=== PATIENT | male | born 1960 | race Caucasian/White ===

== ENCOUNTER 2017-08-23 14:06 | Inpatient (IN) | payer OTHER ==
[~2017-08-23] VITALS: Ht 182.9 cm; Wt 119.7 kg
[~2017-08-23 14:06] MED LIST: AMLODIPINE BESY10 MG PO; ATENOLOL 100MG100 M2; CLONAZEPAM 1 MG1 M1; GABAPENTIN 100100 MG PO; GLUCOPHAGE500 MG; HYDROCHLOROTHIA25 M1; LANTUS SUBQ; LISINOPRIL40 MG PO; MS CONTIN15 MG; NORCO 10-325 T1 EACH; NOVOLOG100 UNIT/1; NOVOLOG100 UNIT/1 SUBQ; PAROXETINE HCL30 MG; PRAZOSIN HCL5 MG; PROAIR HFA8.5 GM INH; VIAGRA50 MG; ZPAK PO
[2017-08-23] MEDS ORDERED: AUGMENTIN 875-1 EACH PO (14:55)
[2017-08-23] MEDS ORDERED: ASPIR 8181 MG PO (14:56)
[2017-08-23] MEDS ORDERED: ATORVASTATIN CA40 MG PO (14:57)
[2017-08-23] MEDS ORDERED: WELLBUTRIN XL150 MG PO (14:58)
[2017-08-23] MEDS ORDERED: D-20002000 UNIT PO (15:01)
[2017-08-23] MEDS ORDERED: DOXYCYCLINE 10100 MG PO (15:02)
[2017-08-23] MEDS ORDERED: COLACE100 MG PO ×2 (15:02→15:31)
[2017-08-23] MEDS ORDERED: PROZAC20 MG PO (15:03)
[2017-08-23] MEDS ORDERED: ROBAXIN 750 MG750 M1 PO (15:05)
[2017-08-23] MEDS ORDERED: POTASSIUM20 PO (15:05)
[2017-08-23] MEDS ORDERED: PRED FORTE 1% EY5 M1 OPHTHALMIC (15:10)
[2017-08-23] MEDS ORDERED: SENNA8.6 MG PO ×2 (15:10→15:32)
[2017-08-23] MEDS ORDERED: FLOMAX0.4 MG PO (15:11)
[2017-08-23] MEDS ORDERED: TRAZODONE HCL100 MG PO (15:12)
[2017-08-23] MEDS ORDERED: CARVEDILOL25 MG PO (15:17)
[2017-08-23] MEDS ORDERED: HYDRALAZINE 2525 MG PO (15:19)
[2017-08-23] MEDS ORDERED: OXYCODONE HCL 55 MG PO (15:23)
[2017-08-23] MEDS ORDERED: VALACYCLOVIR1000 MG PO (15:24)
[2017-08-23] MEDS ORDERED: AMBIEN 5 MG TABL5 M1 PO (15:26)
[2017-08-23 18:00] VITALS: BP 136/89
[2017-08-23 20:30] VITALS: BP 139/67
--- NOTE | 2017-08-24 02:20 | NUR ---
ASSUMED CARE AT 1930. [facility]. MOVES WELL IN BED AND REFUSES ASSIST WITH TURNING. TAKES PILLS WHOLE WITH WATER. PAIN MEDS PER MAR. WATCHED TV SHOWS ON TABLET UNTIL NEARLY MIDNIGHT. JOSÉ WRAP TO RT BKA C/D/I. STANLEY OBSERVED NEARLY ON STOMACH PER SELF. STATES THAT HE DOES NOT TAKE VALACYCLOVIR, AND HAS NOT TAKEN IT FOR TWO YEARS, PER HIS PRIVATE PHYSICIAN. MEDICATIONS REVIEWED BY HIMS IN ADDITION TO REVIEWING THEM WITH DR. ESPARZA. HAS REMAINED IN BED THUS FAR THIS SHIFT. VOIDS PER URINAL, NURSE EMPTIES. WEARS CPAP FROM HOME, R.T. NOTIFIED. HOURLY ROUNDS CONTINUE, BED ALARM ON. REFUSES TO HAVE 4 SR UP, HAS THREE. CALL LITE IN REACH.
[2017-08-24 04:20] LABS: HEMATOCRIT 28.8 % (42.0-52.0); HEMOGLOBIN 9.7 gm/dL (14.0-18.0); MCH 27.6 pg (26.0-34.0); MCHC 33.7 g/dL (28.0-37.0); MCV 82.1 fL (80.0-100.0); MPV 9.3 fl. (7.2-11.1); RBC 3.51 mil/uL (4.50-6.00); RDW-CV 14.4 % (10.5-14.5); WBC 9.3 thou/uL (4.0-11.0)
[2017-08-24 04:35] LABS: CALCIUM 8.3 mg/dL (8.5-10.1); CREATININE 0.8 mg/dL (0.6-1.3); POTASSIUM 3.5 mmol/L (3.5-5.1)
--- NOTE | 2017-08-24 05:54 | NUR ---
HAS BEEN OBSERVED SLEEPING SINCE AROUND MIDNIGHT. HAS NOT REQUESTED MORE PAIN MEDS AFTER LAST DOSE AT 2252. SEE AUG. TURNS SELF EASILY IN BED, AND HAS BEEN OBSERVED IN NEARLY PRONE POSIITON. VOIDS PER URINAL, NURSING EMPTIES. HOURLY ROUNDS CONTINUE, BED ALARM ON. CALL LITE IN REACH.
[2017-08-24 06:26] VITALS: BP 157/68
[2017-08-24 08:00] VITALS: BP 127/69
[2017-08-24 17:00] VITALS: BP 122/72
--- NOTE | 2017-08-24 18:23 | NUR ---
ASSUMMED CARE OF PT AT 0730, PT ALERT AND ORIENTED, FLAT AFFECT, PT COOPERATIVE, PT TRANSFERS WITH SBA, GB WITH A STAND PIVOT, PT IS COOPERATIVE TO CARES AND WORKS WITH THERAPIES BUT WHEN THERAPY WAS OVER DOES REQUESTS TO LAY IN BED, PUTS CPAP ON AND SLEEPS UNTIL NEXT CARE IS NEEDED AND STAFF WAKE HIM UP, HE DID STAY IN THE CHAIR THIS AFTERNOON FOR SHORT PERIOD AFTER PT WAS COMPLETED BUT AGAIN SLEPT MOST OF AFTERNOON, PT COMPLAINS OF PAIN, MEDICATED PER ORDER, PT SPIRITS BRIGHTER THIS PM, PLAYING VIDEO GAME, MAKING JOKES. SMALL RED AREAS NOTED IN PTS GROIN AREA, BUTTOCKS, THIGHS, LEGS AND A FEW ON CHEST, ABDOMEN AND BACK, PT STATES THEY ARE BUG BITES, HE STATES HE HAS HAD BED BUGS AT HOME, WHEN ASKED ABOUT THE POSSIBILITY OF FLEAS HE SAID IT COULD ALSO BE FLEA BITES, PT STATES THEY ITCH SOME BUT IT IS TOLERABLE , BENADRYL GIVEN PER ORDER X 1, PT HAD LOW GRADE FEVER TODAY, PT TAKING FOOD AND FLUIDS WELL, DRESSING C/D/I TO RIGHT STUMP,PT STATES HIS RIGHT LOWER LEG HAS A SENSATION OF FEELING COLD, STUMP WRAPPED IN WARM BLANKET, PT PARTICIPATED IN ALL THERAPIES, HOURLY ROUNDING COMPLETED, ASSESSMENT COMPLETE WILL CONTINUE TO MONITER.
[2017-08-24 20:00] VITALS: BP 136/67
[2017-08-25 00:15] VITALS: BP 133/68
[2017-08-25 01:30] LABS: URINE BILIRUBIN NEGATIVE (Negative); URINE BLOOD NEGATIVE (Negative); URINE CLARITY CLEAR; URINE COLOR YELLOW; URINE GLUCOSE-RANDOM TRACE (Negative); URINE KETONES NEGATIVE (Negative); URINE LEUKOCYTES-REFLEX NEGATIVE (Negative); URINE NITRITE-REFLEX NEGATIVE (Negative); URINE PROTEIN TRACE (Negative)
[2017-08-25 04:36] LABS: ABSOLUTE EOSINOPHILS 0.5 thou/uL (0.0-0.7); ABSOLUTE LYMPHOCYTES 2.4 thou/uL (0.8-5.3); ABSOLUTE MONOCYTES 0.9 thou/uL (0.0-1.2); ABSOLUTE NEUTROPHILS 5.1 thou/uL (1.6-8.1); BASOPHILS 0.3 %; EOSINOPHILS 5.4 %; HEMATOCRIT 29.4 % (42.0-52.0); HEMOGLOBIN 9.8 gm/dL (14.0-18.0); LYMPHOCYTES 26.8 %; MCH 27.5 pg (26.0-34.0); MCHC 33.2 g/dL (28.0-37.0); MCV 82.7 fL (80.0-100.0); MONOCYTES 9.9 %; NUCLEATED RBCS 0 /100WBC; PLATELET COUNT* 235 thou/uL (150-400); POLYS 57.6 %; RBC 3.56 mil/uL (4.50-6.00); RDW-CV 14.5 % (10.5-14.5); WBC 8.9 thou/uL (4.0-11.0)
--- NOTE | 2017-08-25 05:29 | NUR ---
ASSUMED CARE AT 1930. PATIENT S/P RT BKA. RESTING IN BED AT BEGINNING OF SHIFT. TURNS SELF EASILY IN BED. TAKES PILLS WHOLE WITH DIET SODA ALL AT ONE TIME. STILL NO BM, REFUSED SUPPOSITORY. TOOK MIRILAX AND COLACE PER SCHEDULE. SEE AUG. MEDICATED FOR PAIN AT HS, SEE AUG. HAS SLEPT MUCH OF THE NIGHT. OBTAINED U/A AT 1220. TEMP WAS 100.2 AT 2000, DECLINED APAP. TEMP WAS 100.1 AT MIDNIGHT, TOOK APAP. HAS BEEN SLEEPING SINCE. MULTIPLE URINALS IN PLACE. STATES THAT HE LIVES IN A TRAILER WITH 5 STEPS AND HE IS GETTING A RAMP [facility] BY THE [facility] "BEFORE I AM DISCHARGED." PATIENT STATES THAT HE HAS BEEN TOLD HE WILL BE HERE ABOUT TWO WEEKS, AND THIS NURSE ENCOUARGED PATIENT TO KEEP CHECKING WITH THE VA TO ASSESS PROGRESS OF RAMP COMPLETION. REMAINS ON ISOLATION FOR UNKNOWN BUG BITES. TOOK BENADRYL AT HS, BUT STATES THE ITCHING IS MUCH BETTER. GROINS AND SCATTERED AREAS ON HIS BODY HAVE RED AREAS. NO BUGS SEEN DURING CARES. HOURLY ROUNDS CONTINUE. BED ALARM ON. CALL LITE IN REACH.
[2017-08-25 06:45] VITALS: BP 145/68
--- NOTE | 2017-08-25 06:58 | NUR ---
PATIENT STATES THAT HE NOT ITCHING AT THIS TIME. PATIENT HAS MOVED ABOUT IN HIS BED, AND NO BLOOD STREAK VISIBLE ON SHEETS OBSERVED WHILE GIVING MORNING MEDS. TEMP 98.7 ORALLY. HAS BEEN WEARING CPAP WITH NASAL MASK THROUGH NIGHT. HOURLY ROUNDS CONTINUE.
[2017-08-25 08:00] VITALS: BP 170/74
[2017-08-25 12:00] VITALS: BP 148/66
--- NOTE | 2017-08-25 16:37 | NUR ---
ASSUMMED CARE OF PT AT 0730, PT ALERT AND ORIENTED, PT TRANSFERS WITH SBA, GB AND WALKER, IF NURSE TOUCHES PT ON GB PT STATES PLEASE DO NOT TOUCH ME, DISCUSSED SAFETY CONCERNS BUT PT STATES HE DOES NOT NEED TO HAVE GB HELD, AT ONE POINT PT LOST BALANCE AND STAFF DID NEED TO STEADY PT, PT STATES IT HAS TO DO WITH HIS PTSD, PT HAS FLAT AFFECT, IS PLEASANT AND COOPERATIVE THIS SHIFT, PT STATES HIS STUMP FEELS COLD AND HE CAN FEEL SOME SHARP PHANTOM PAIN, WARM BLANKET APPLIED TO STUMP WITH RELIEF, MEDICATED X 2 FOR PAIN THIS SHIFT, TAKING FOOD AND FLUIDS WELL, PT STATES HE DOES BECOME NAUSEATED AT TIMES BUT HAS HAD NO NAUSEA THIS SHIFT, PT HAD LARGE BM IN TOILET THIS AM, PT AFEBRILE THIS SHIFT, PT REFUSED TO GO TO DININGROOM FOR MEALS, PT UP IN CHAIR MOST OF AM, PT REFUSED BATH, DID DRESS INTO CLEAN GYM SHORTS, PT INCONTINENT OF LARGE AMOUNT OF URINE OR SPILLED URINAL BED SATURATED, PT DOES NOT KNOW WHAT HAPPENED, DRESSING TO RIGHT STUMP C/D/I. HOURLY ROUNDING COMPLETED, ASSESSMENT COMPLETE, WILL CONTINUE TO MONITER.
[2017-08-25 17:00] VITALS: BP 122/69
[2017-08-25 19:45] VITALS: BP 143/79
--- NOTE | 2017-08-25 20:00 | NUR ---
RECEIVED REPORT AND ASSUMED CARE OF PT, ASSESSMENT COMPLETED. PT SITTING UPON SIDE OF BED. RT STUMP ACEWRAP DRY AND INTACT. NOTED RED PURPLISH AREAS, POSS BITED TO LEGS AND TRUNK. C/O RT STUMP SORENESS DUE TO BEING UP AND DANGLING THIS EVENING. WILL CONT TO MONITOR AND ASSIST NEEDED.
--- NOTE | 2017-08-26 05:32 | NUR ---
ASSUMED CARES AT 0200. PT USED URINAL AND STAFF EMPTIED. WEARS CPAP OVERNIGHT. NO COMPLAINTS. CALL LIGHT IN REACH.
[2017-08-26 06:51] VITALS: BP 152/63
[2017-08-26 08:00] VITALS: BP 145/70
--- NOTE | 2017-08-26 11:51 | NUR ---
Nutrition: New admit to [facility] unit s/p Rt BKA. No albumin recorded. BG 200s. Pt eating 75-100% of CHO controlled meals. +BM today. Wears CPAP at [facility]. Wt stable, 276#. RX: aspirin, insulin. GOALS: better BG control with insulin. Recommend MVI for wound healing. Mild risk. Will follow weekly.
--- NOTE | 2017-08-26 16:25 | NUR ---
PT CARE ASSUMED THIS AM, ASSESSMENT AND VITAL SIGNS COMPLETED DOCUMENTED. PT HAS BEEN PLEASANT AND COOPERATIVE, WORKED WITH THERAPISTS IN HIS ROOM. PRN PAIN MEDS GIVEN FOR PAIN AT THE SURGICAL SITE, DRESSING TO THE RESIDUAL LIMB REMAINS C/D/I. PT HAS HAD A GOOD APPETITE AND DRINKS MORE THAN ADEQUATE AMOUNTS OF FLUIDS. ISOLATION DC'D THIS AFTERNOON, RAEANN AND DR VALENTIN HAVE DETERMINED THERE IS NO REASON TO CONTINUE IT. FALL PRECAUTIONS AND HOURLY ROUNDING IN PLACE.
[2017-08-26 19:30] VITALS: BP 142/72
--- NOTE | 2017-08-26 21:10 | NUR ---
WHEELED SELF TO DOORWAY OF THE BATHROOM THEN USED WALKER, GAITBELT AND HOPPED THE RESTED OF THE WAY TO THE TOILET. HAD A LOOSE BM. DID OWN HYGIENE AND CLOTHING ADJUSTMENTS. DENIES NEED FOR PAIN MEDS. JOSÉ WRAP TO RIGHT STUMP DRY/INTACT. TRANSFERRED SELF FROM W/C TO BED. TOOK MEDS WHOLE ALL AT ONCE WITH WATER. SNACK PROVIDED.
--- NOTE | 2017-08-27 05:13 | NUR ---
USED URINAL SEVERAL TIMES DURING THE NIGHT. AT ABOUT 0330 SPILLED URINAL IN THE BED RESULTING IN A TOTAL BED CHANGE. URINE SPILLED ONTO PT'S SHIRT AND SHORTS. ASSISTED PT IN WASHING UP WITH A SOAPY WASH CLOTH. PT WASHED HIS DANITA AREA. PAIN MEDS GIVEN AT 0335 FOR C/O RIGHT LEG PAIN WITH RELIEF. HOURLY ROUNDING IN PROGRESS.
[2017-08-27 07:36] VITALS: BP 150/68
--- NOTE | 2017-08-27 16:15 | NUR ---
ASSUMMED CARE OF PT AT 0730, PT ALERT AND ORIENTED, PT STAND PIVOT TRANSFERS WTIH GB WALKER ASSIST OF 1, UP IN CHAIR MUCH OF SHIFT, STUMP DRESSING C/D/I. VOIDS PER URINAL, PT HAD LARGE BM IN TOILET, PT COMPLAINS OF PAIN IN STUMP AND PHANTOM PAIN DOWN LEG, MEDICATED ORDERED FOR PAIN, PT HAS REDDISH ROUND AREAS ON SEVERAL AREAS OF SKIN, PT STATES WHEN IN BED CAN NOT WEAR A SHIRT OR GOWN HE GETS TO FEEL TO CLAUSTROPHOBIC, PT PARTICIPATED IN ALL THERAPIES, HOURLY ROUNDING COMPLETED, ASSESSMENT COMPLETE, WILL CONTINUE TO MONITER.
--- NOTE | 2017-08-27 16:52 | NUR ---
SW met with pt to complete initial assessment, introduce self, and SW role. Pt alert, oriented, conversational. Pt lives at home with his who pt reported to nurse that pt has stage 4 cancer. Pt said that the [facility] was working on getting [facility] crutches and BSC but that pt has not received that yet. Pt has history with Anali when he also had a wound vac. SW to continue to follow to assist with safe dc planning.
--- NOTE | 2017-08-27 20:50 | NUR ---
LAYING IN BED ON HIS SIDE AND WATCHING IPAD. PAIN MED GIVEN FOR C/O RIGHT LEG PAIN RATED "4". JOSÉ WRAP AROUND RIGHT STUMP DRY/INTACT. 4 URINALS AND CALL LIGHT WITHIN REACH. TOOK MEDS WHOLE ALL AT ONCE WITH WATER. SNACK PROVIDED.
[2017-08-27 21:37] VITALS: BP 133/61
--- NOTE | 2017-08-28 06:04 | NUR ---
RESTED QUIETLY WITH CPAP. DENIES NEED FOR PAIN MEDS THIS MORNING. USED URINAL DURING THE NIGHT SEVERAL TIMES. HOURLY ROUNDING IN PROGRESS.
[2017-08-28 07:36] VITALS: BP 149/79
--- NOTE | 2017-08-28 15:45 | NUR ---
Team conference held, SW met with pt, pt , and pt dtr to review team conference summary. Plan for pt to remain on rehab and continue therapies with plan for team to reassess pt length of stay during team conference on Saturday. Possibility for family training with family nearer to dc day once determined. Team also presented possibility that pt live with dtr at dc if needed? Team reported pt independent to SBA with bed mobility and transfers to chair/wc, SBA with walking 10 ft, and SBA with wc mobility 150 ft, max assist with toileting, min assist with toilet transfer, supervision with all other ADLs tasks, min assist with problem solving, min assist to supervision with memory. Team commented pt fatigue, RlE instability and weakness, balance, endurance, safety, and pt having multiple pets at home to be barriers to pt overall progress and safety at home. Pt and pt family in agreement to plan to reteam. Pt asked SW about SSI and SW recommending pt/ contact pt employer, [employer] and possibly [facility]; SW mentioned if there is a physician's statement to be completed, Dr Lechuga could complete and sign if needed or esle pt PCP could complete as well. SW to continue to follow to assist with safe dc planning.
--- NOTE | 2017-08-28 16:55 | NUR ---
ASSUMED CARE AT 0730 PATIENT ALERT/ORIENTED, UP WITH ASSIST OF ONE AND WALKER/GAIT BELT, STAND PIVOT TO W/C FOR NURSING. PARTICIPATED IN ALL THERAPIES TODAY, TO DINING ROOM FOR MEALS, PAIN MEDS GIVEN X2 FOR RIGHT LEG PAIN, HOURLY ROUNDING COMPLETED, BED/CHAIR ALARMS IN PLACE, CALL LIGHT IN REACH
[2017-08-28 20:00] VITALS: BP 142/75
--- NOTE | 2017-08-28 23:21 | NUR ---
ASSUMED PT CARE AT 1930, PT IS A&OX4, PT C/O PAIN THIS SHIFT, PRN PAIN MEDICATIONS GIVEN PER AUG, PT IS ON RA SATTING MID TO HIGH 90'S. PT HAS A RBKA, DRESSING STILL IN PLACE, THIS RN DID NOT REMOVE DRESSING OR VISULAIZE STUMP. BED IN LOW POSITION, CALL LIGHT IN REACH. HOURLY ROUNDING COMPLETED FOR PT SAFETY. PT IS UP WITH ONE AND A WALKER TO THE BR, PT MOVES AROUND IN HIS WHEELCHAIR IN ROOM.
[2017-08-29 07:32] VITALS: BP 147/79
--- NOTE | 2017-08-29 09:22 | NUR ---
SPOKE WITH JESSICA AT [facility]([phone] EXT [phone]) ABOUT WOUND CARE IE: STUMP INDUCTION HEAT TREATER AND STUMP PROTECTOR. DR RAMOS WANTS PATIENT SEEN IN CLINIC ([facility] 2ND FLOOR) ON SaturdayAugust AT 9AM. ROBERT NEAL NOTIFIED ABOUT APPOINTMENT AND SHE WILL SET UP TRANSPORTATION
--- NOTE | 2017-08-29 11:39 | NUR ---
BROCK was informed of pt needing transportation for appt Saturday 09/02 morning to [facility], second floor, at 9 am. BROCK called [facility] at [phone] and arranged for ride, the transport will belt picker pt at 8:00 am. Nurse and pt aware.
--- NOTE | 2017-08-29 16:24 | NUR ---
ASSUMED CARE AT 0730 PATIENT ALERT/ORIENTED, PAIN MEDS GIVEN X2 THIS SHIFT WITH GOOD RELIEF, UP WITH STANDBY ASSIST WITH GAIT BELT, STAND/PIVOT TO W/C FROM BED. PARTICIPATED IN ALL THERAPIES TODAY, REFUSES TO GO TO DINING ROOM DUE TO PTSD, BED/CHAIR ALARMS IN PLACE, CALL LIGHT IN REACH, HOURLY ROUNDING COMPLETED, DRESSING TO RIGHT LEG/STUMP REMAINS INTACT. PATIENT TO F/U WITH SURGEON ON SATURDAY, SEE PREVIOUS NOTE.
[2017-08-29 22:12] VITALS: BP 146/79
--- NOTE | 2017-08-29 22:19 | NUR ---
ASSUMED CARE AT 1929. S/P RT BKA. PATIENT RESTING IN W/C AT BEGINNING OF SHIFT. STAND PIVOT TO BED AT 1930 TO BED WITH GAIT BELT, SBA. VOIDS PER URINAL, FOUR AT BEDSIDE. TAKES PILLS WHOLE WITH WATER. MOVES VERY WELL IN BED, REFUSES ASSIST WITH TURNS. JOSÉ WRAP TO STUMP C/D/I. MEDICATED FOR PAIN AND SLEEP AT HS. CHOCOLATE ICE CREAM FOR HS SNACK. DENIES ITCHING, BUT HAS BEEN ON BENADRYL BID. HOURLY ROUNDS CONTINUE, CALL LITE IN REACH.
[2017-08-30 00:20] VITALS: BP 114/50
--- NOTE | 2017-08-30 05:34 | NUR ---
APPEARS TO BE SLEEPING AT TIMES THROUGH NIGHT. VOIDS PER MULTIPLE URINALS. TURNS SELF VERY EASILY AND SOMETIMES SLEEPS ON HIS STOMACH. WANTED SHERBET AT 0530, BUT DISCOURAGED HIM BECAUSE IT WILL AFFECT HIS MORNING BLOOD SUGAR READING. HOURLY ROUNDS CONTINUE, CALL NIRE IN REACH.
[2017-08-30 05:45] VITALS: BP 158/81
[2017-08-30 08:06] VITALS: BP 147/72
[2017-08-30 20:13] VITALS: BP 132/71
[2017-08-30 23:13] VITALS: BP 127/69
--- NOTE | 2017-08-31 00:07 | NUR ---
ASSUMED CARE AT 1930. PATIENT S/P RT BKA. SITTING IN W/C UNTIL NEARLY 2200. COLORING FOR A WHILE WITH COLORED PENCILS. TAKES PILLS WHOLE ALL AT ONE TIME. VOIDS PER URINAL. DRESSING TO R BKA C/D/I. MOVES VERY WELL IN BED. UP WITH SBA, GAIT BELT, STAND PIVOT. PATIENT REFUSES TO ALLOW STAFF TO TOUCH HIM WHILE TRANSFERING HIM DESPITE EDUCATION ABOUT NEEDING TO DO SO FOR SAFETY. MEDICATED FOR PAIN, SEE MAR. BOX LUNCH AND ICE CREAM GIVEN HS SNACK. HOURLY ROUNDS CONTINUE. BED ALARM ON. CALL LITE IN REACH.
--- NOTE | 2017-08-31 05:51 | NUR ---
SLEPT AFTER ABOUT MIDNIGHT. WATCHED TV SHOWS ON TABLET UNTIIL THEN. TURNS SELF, REFUSES ASSIST, REFUSES MORE THAN TWO SIDE RAILS UP WITH C/O CLAUSTROPHOBIA. VOIDS PER URINAL. NO C/O PAIN AFTER HS. CPAP OFF AND ON THROUGH NIGHT. HOURLY ROUNDS CONTINUE. BED ALARM ON. CALL LITE IN REACH.
[2017-08-31 06:28] VITALS: BP 168/88
[2017-08-31 08:09] VITALS: BP 160/89
--- NOTE | 2017-08-31 17:53 | NUR ---
ASSUMED CARE AT 0730 PATIENT ALERT/ORIENTED, PAIN MEDS GIVEN THIS SHIFT FOR RIGHT LEG PAIN WITH GOOD RELIEF, UP WITH STANDBY ASSIST, STAND PIVOT TO W/C WITH GAIT BELT. PARTICIPATED IN ALL THERAPIES TODAY, DOES NOT GO TO DINING ROOM DUE TO PTSD. CALL LIGHT IN REACH, HOURLY ROUNDING COMPLETED, BED/CHAIR ALARMS IN PLACE. DRESSING TO RIGHT STUMP REMAINS DRY/INTACT.
[2017-08-31 20:20] VITALS: BP 144/67
[2017-08-31 23:42] VITALS: BP 120/58
--- NOTE | 2017-09-01 00:33 | NUR ---
BEGAN CARE OF PT AT 1915, PT A/OX4, RA, VSS, PAIN TREATED-SEE EMAR, DRESSING TO RLK FELL OFF, REVIEWED DRESSING CHANGE ORDERS AND PLACED NEW DRESSING AT THAT TIME, MEDS/ASSESSMENT PER CHARTING, HOURLY ROUNDING IN PLACE, FALL PRECAUTIONS IN PLACE-WHEN TURNING ON BED ALARM PT STATED IN A FIRM VOICE, "WHAT YOU DON'T TRUST ME," EDUCATED PT ON FALL PRECAUTIONS/MEASURES, PT REPORTED HE DOES NOT HAVE A HOME MEDICATION FOR SHINGLES, HAS NEVER HAD SHINGLES, AND DOENS'T KNOW WHY IT'S ON HIS MEDICATION LIST, PT EATING SHERBERT MULTIPLE TIMES THUS FAR IN THE SHIFT, REC PRN SLEEPING AIDES WHICH HAVE NOT APPEARED TO HELP THUS FAR, WILL CONT TO MONITOR.
[2017-09-01 03:20] VITALS: BP 141/63
--- NOTE | 2017-09-01 03:29 | NUR ---
WHILE IN PT ROOM TO CHANGE PT'S BEDDING DUE TO PT DROPPED HIS URINAL, PT GOT UP TO HIS W/C, PT REFUSED TO ALLOW ME TO PLACE A GAIT BELT AROUND HIM, REFUSED TO ALLOW ME TO PLACE MY HAND ON HIS SHOULDER OR SIDE, AND STATED ,"DON'T TOUCH ME." AFTER PT BED CHANGED PT REPROTED HE NEEDED TO URINATE AND CHANGE HIS PANTS, WHEN I ASKED PT IF HE WAS GOING TO STAND TO CHANGE HIS PANTS HE SAID HE WILL AFTER HE GOES PEE, I THEN WENT TO GET THE GAIT BELT AND WALKED OVER TO THE PT AND HE THEN STATED HE DOESN'T WANT MY HELP AND TO LEAVE HIM ALONE, I THEN INFORMED THE PT I WOULD NOT LEAVE HIM ALONE IN THE ROOM, PT THEN STOOD UP, ATTEMPTED TO TURN HIMSELF, AND FELL DOWN ONTO THE FLOOR IN A SLIDDING TYPE MOTION HE GRABBED THE SIDE RAIL OF THE BED, PT STATED HE DID NOT HIT HIS HEAD, IS IN NO PAIN, AND THEN STATED, "THIS IS GOING TO BE ONE OF MANY FALLS, NOW YOU CAN CHANGE YOUR WALL TO SAY ONE DAY INSTEAD OF 4 DAYS SINCE THE LAST FALL", TALKED TO PT MORE ABOUT FALL SAFETY, USING THE GAIT BELT, AND BED ALARMS, PT THEN STATED ,"OK", WHEN I STATED HE MUST USE THE GAIT BELT I REQUESTED. VSS, BP 141/63, RESP 18, HR 73, 96% O2 RA, TEMP 97.7. WILL CONT TO MONITOR.
--- NOTE | 2017-09-01 03:48 | NUR ---
U-CALL SENT TO DR COLORADO REGARDING PT'S FALL.
--- NOTE | 2017-09-01 03:50 | NUR ---
ANSWERING SERVICE FOR DR COLORADO CALLED AND ATTEMPTED TO CONNECT ME. DID NOT SPEAK WITH DR COLORADO AT THIS TIME. CALL PLACED TO HOUSE SUP.
--- NOTE | 2017-09-01 03:53 | NUR ---
DR COLORADO CALLED, INFORMED OF PT'S FALL, VS, AND ASSESSMENT, NO NEW ORDERS AT THIS TIME.
[2017-09-01 04:00] VITALS: BP 137/77
[2017-09-01 05:00] VITALS: BP 147/71
--- NOTE | 2017-09-01 05:25 | NUR ---
NO CHANGES WITH PT SINCE LAST NOTE, PT REMAINS FREE FROM PAIN.
[2017-09-01 05:35] VITALS: BP 147/71
[2017-09-01 07:48] VITALS: BP 136/56
--- NOTE | 2017-09-01 18:45 | NUR ---
ASSUMED CARE AT 0730 PATIENT ALERT/ORIENTED, PAIN MEDS GIVEN 3 THIS SHIFT, DRESSING TO RIGHT STUMP INTACT. DISCUSSED WITH PATIENT ABOUT OUR FALL POLICY AND BED ALARMS, PATIENT VOCAL ABOUT NOT LIKING THIS BUT DID PUT ON GAIT BELT. STATED HE DOES NOT REMEMBER FALLING LAST NIGHT, STATES HE HAS A HISTORY OF SLEEP WALKING AND HAS DONE THIS SINCE A KID. BED ALARMS IN PLACE WHEN IN BED. HOURLY ROUNDING COMPLETED, REFUSES TO GO TO DINING ROOM. UP WITH STAND/PIVOT TO W/C.
[2017-09-01 20:13] VITALS: BP 134/58
--- NOTE | 2017-09-01 20:45 | NUR ---
SITTING UP ON SIDE OF BED WITH LEFT LEG ON THE FLOOR AND RIGH STUMP UP ON THE BED WATCHING HIS IPAD. DENIES NEED FOR PAIN MED. VOIDS DARK YELLOW URINE PER URINAL. HAS 4 URINALS HANGING ON TRASH CAN WITHIN REACH. TOOK MEDS WHOLE ALL AT ONCE WITH WATER. SNACK PROVIDED. JOSÉ WRAP AROUND RIGHT STUMP DRY/INTACT.
[2017-09-02 05:25] LABS: HEMATOCRIT 30.9 % (42.0-52.0); HEMOGLOBIN 9.9 gm/dL (14.0-18.0); MCH 26.6 pg (26.0-34.0); MCHC 32.2 g/dL (28.0-37.0); MCV 82.7 fL (80.0-100.0); MPV 8.4 fl. (7.2-11.1); RBC 3.73 mil/uL (4.50-6.00); RDW-CV 14.7 % (10.5-14.5)
[2017-09-02 05:39] LABS: CALCIUM 8.5 mg/dL (8.5-10.1); CREATININE 0.9 mg/dL (0.6-1.3); MAGNESIUM 1.9 mg/dL (1.8-2.4)
--- NOTE | 2017-09-02 06:16 | NUR ---
USED URINAL SEVERAL TIMES DURING THE NIGHT. SITS UP ON SIDE OF BED TO USE THE URINAL. STILL DENYING NEED FOR PAIN MEDS. HOURLY ROUNDING IN PROGRESS.
[2017-09-02 07:30] VITALS: BP 147/81
--- NOTE | 2017-09-02 16:36 | NUR ---
CM SPOKE TO THE PATIENT AND HIS SADIQ ([phone]) TO DISCUSS ANY QUESTIONS OR CONCERNS THAT THEY MAY HAVE FOR TOMORROW'S TEAM CONFRENCE MEETING. PATIENT HAS NO QUESTIONS OR CONCERNS AT THIS TIME. SADIQ INFORMS THAT HER ONLY CONCERN IS WITH WHEN THE PATIENT IS READY TO D/C HOW HE WILL NAVIGATE THE STAIRS TO ENTER THE HOME. CM WILL REMAIN AVIALABLE TO ASSIST AND FOLLOW NEEDED.
--- NOTE | 2017-09-02 16:42 | NUR ---
ASSUMED CARE AT 0730. ALERT ORIENTED PLEASANT COOPERATIVE. HX OF RT. BKA JOSÉ WRAP C/D/I TO RT. STUMP. PT. WAS TAKEN TO [facility] FOR ORTHOPEDIC APPT. AT 0800 BY VAN RETURNED AT 1240. HE HAD A SANDWICH AT [facility] BEFORE RETURNING TO [facility]. TRANSFERS WITH SBA G BELT WALKER FROM W/C IN DOORWAY TO TOILET AFTER RETURN. ABLE TO DO HYGEINE AND CLOTHING ADJUSTMENTS. USES CALL LIGHT APPROPRIATELY FOR ASSIST BED CHAIR ALARM FOR PT. SAFETY. PARTICIPATED LATTER AFTERNOON WITH THERAPIES. MEDICATED X 2 FOR C/O RT. STUMP PAIN. TAKES MEDS WITHOUT DIFFICULTY WITH WATER. UP IN W/C AND ABOUT ROOM.
[2017-09-02 17:00] VITALS: BP 129/73
[2017-09-02 20:14] VITALS: BP 131/57
[2017-09-03 05:31] VITALS: BP 140/67
--- NOTE | 2017-09-03 05:34 | NUR ---
ASSUMED CARES AT 1920. PT ALERT AND ORIENTED. CALM AND COOPERATIVE. S/P RIGHT BKA. DRESSING TO RIGHT STUMP INTACT. OXY IR GIVEN FOR STUMP PAIN. HE IS A SBA WITH GAIT BELT AND W/C. STAND AND PIVOT. USED URINAL DURING THE NIGHT AND STAFF EMPTIED. REFUSED BENADRYL HE NO LONGER HAS RASH. SLEEP AIDS GIVEN PER REQUEST. USED CALL LIGHT APPROPRIATELY.
[2017-09-03 07:30] VITALS: BP 141/63
--- NOTE | 2017-09-03 17:34 | NUR ---
WOUND CARE NOTE: CONSULT RECEIVED FOR R. LEG STUMP CARE S/P BKA, SOME BLISTERS. PATIENT IS S/P BKA. DANITA-WOUND WITH MANY AREAS OF HEALING BLISTERS. BLISTERS APPEAR TO BE HEALING. CLEANSED INCISION LINE AND DANITA-WOUND WELL WITH WOUND CLEANSER. INICISION LINE WITH BOTH SUTURES AND STABLES. APPEARS TO BE EDEMATOUS. 3 AREAS OF CONCERN ON INCISION LINE, MAY NOT BE HEALING TOGETHER WELL. THE CENTER AREA OF CONCERN IS DRAINING SANGUINEOUS DRAINAGE. MODERATE AMOUNTS OF SANGUINEOUS DRAINAGE NOTED ON THE OLD DRESSING. DANITA-WOUND WITH SLIGHT ERYTHEMA TOO. APPLIED XEROFORM GAUZE TO INCISION LINE AND ANTERIOR BLISTERS. APPLIED OPTIFOAM AG TO POSTERIOR BLISTERS. COVERED WITH 4X4 AND ABD. SECURED WITH KERLIX AND JOSÉ. EDUCATED PATIENT ON IMPORTANCE OF TIGHT BLOOD GLUCOSE CONTROL, GOOD NUTRITION FOR WOUND HEALING, AND KEEPING AREA ELEVATED. COMMUNICATED UNDERSTANDING TO ALL. RECOMMEND ELEVATE STUMP ENCOURAGE GOOD NUTRITION AND HYDRATION TIGHT BLOOD GLUCOSE CONTROL
--- NOTE | 2017-09-03 18:59 | NUR ---
ASSUMED CARE AT 0730. ALERT ORIENTED PLEASANT COOPERATIVE. HX OF RT. BKA JOSÉ WRAPPED C/D/I DRESSING. TRANSFERS WITH SBA G BELT WALKER FROM BED TO W/C. USES CALL LIGHT APPROPRIATELY FOR ASSIST BED CHAIR ALARM FOR PT. SAFETY. PARTICIPATING IN THERAPIES THROUGHOUT THE DAY. MEDICATED X 2 FOR RT. STUMP PAIN WITH RELIEF STATED. FEEDS SELF TAKES MEDS WITHOUT DIFFICULTY. VOIDS PER URINAL CLEAR FAVIO URINE. HORTENSIA OJEDA SAW PT. THIS AFTERNOON PER HIMS REQUEST.
[2017-09-03 19:30] VITALS: BP 129/60
[2017-09-03 23:04] VITALS: BP 120/59
--- NOTE | 2017-09-04 05:19 | NUR ---
ASSUMED CARES AT 1920. PT ALERT AND ORIENTED. S/P RIGHT BKA. DRESSING TO RIGHT LEG IS INTACT. TAKES PILLS WHOLE. PAIN MEDS GIVEN NEEDED. NO OTHER COMPLAINTS. USED URINAL AND STAFF EMPTIED. CALL LIGHT IN REACH.
[2017-09-04 06:22] VITALS: BP 144/61
[2017-09-04 07:00] VITALS: BP 139/68
--- NOTE | 2017-09-04 16:24 | NUR ---
ASSUMED CARE AT 0730 PATIENT ALERT/ORIENTED, PAIN MEDS GIVEN X2 WITH FAIR RELIEF, UP WITH STAND/PIVOT TO W/C WITH NURSING STAFF, DOES WEAR GAIT BELT WITH TRANSFERS. IN THIS AM FOR FAMILY TRAINING, TO BE DISCHARGED HOME ON SATURDAY. DOES NOT GO TO DINING ROOM FOR MEALS, PREFERS TO EAT IN ROOM. PARTICIPATED IN ALL THERAPIES TODAY. CALL LIGHT IN REACH. HOURLY ROUNDING COMPLETED.
[2017-09-04 20:09] VITALS: BP 114/58
[2017-09-04 22:50] VITALS: BP 129/61
--- NOTE | 2017-09-04 23:06 | NUR ---
ASSUMED CARE AT 1930. PATIENT S/P RT BKA. IN RECLINER UNTIL HS. UP WITH CGA, GAIT BELT, WALKER. TAKES PILLS WHOLE WITH WATER. TURNS SELF EASILY IN BED, OFTEN SLEEPS ON STOMACH. JOSÉ WRAP TO BKA REWRAPPED. DRESSING WAS C/D/I. C/O ITCHING WHERE BLISTERS AROUND WOUND WERE. GIVEN BENADRYL PER ORDER. VOIDS PER URINAL. GIVEN AMBIEN AND TRAZADONE. SEE MAR. STATES TRAZADONE PREVENTS HIM FROM SLEEPWALKING. DISCUSSED HOME PLANS WITH PATIENT, STATES HE HAS BEEN CALL[facility] TO [facility] FOR HIS HOUSE. STATES ON SATURDAY HE LEFT 5 VOICE MAILS REGARDING THIS. MEDICATED FOR PAIN AT HS. SEE MAR. HOURLY ROUNDS CONTINUE. CALL LITE IN REACH.
--- NOTE | 2017-09-05 05:35 | NUR ---
HAS BEEN SLEEPING MOST OF THE NIGHT EXCEPT TO VOID PER URINAL. TURNS SELF VERY EASILY. DRESSING C/D/I TO STUMP. HAD TWO PUDDINGS FOR SNACK. HOURLY ROUNDS CONTINUE. REFUSES BED ALARM. CALL LITE IN REACH.
[2017-09-05 06:15] VITALS: BP 160/88
[2017-09-05 08:12] VITALS: BP 138/71
--- NOTE | 2017-09-05 12:15 | NUR ---
PT HAS BEEN UP TO W/C AND WORKED WITH THERAPIES. PT HAD SPASMS TO RT.LEG. MUSCLE RELAXER GIVEN WITH GOOD EFFECT IN 20 MIN. PT DID REST AND DO STREACHING EXERCISES WITH PT WHILE LYING DOWN. ICE PACK ALSO PLACED ON LOWER STUMP DISTRACTION WITH GOOD EFFECT. PT DENIES PAIN AT PRESENT. JOSÉ WRAP INTACT.
--- NOTE | 2017-09-05 19:14 | NUR ---
PT HAS PARTICIPATED WITH THERAPIES AND CALLS FOR ASSIST WITH TRANSFERRS WITH GAITBELT ON. DRESSING TO RT STUMP CHANGED DUE TO PT.C/O PAIN AND DISCOMFORT WITH AREA CLEANSED WITH WOUND CLEANSER. DRESSINGS REPLACED AND JOSÉ WRAP REAPPLIED AND PT FEELING BETTER. PRN FOR PAIN GIVEN TODAY WITH GOOD EFFECT. PT VOIDING WELL. PT ALERT AND APPROPIATE AND PROGRESSES TOWARDS GOALS. HOURLY ROUNDING CONTINUES.
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
[2017-09-05 20:09] VITALS: BP 153/78
[2017-09-06 04:25] LABS: ABSOLUTE EOSINOPHILS 0.4 thou/uL (0.0-0.7); ABSOLUTE LYMPHOCYTES 1.8 thou/uL (0.8-5.3); ABSOLUTE MONOCYTES 0.6 thou/uL (0.0-1.2); ABSOLUTE NEUTROPHILS 4.3 thou/uL (1.6-8.1); BASOPHILS 0.6 %; HEMATOCRIT 29.3 % (42.0-52.0); HEMOGLOBIN 9.5 gm/dL (14.0-18.0); LYMPHOCYTES 25.4 %; MCH 26.9 pg (26.0-34.0); MCHC 32.4 g/dL (28.0-37.0); MONOCYTES 9.1 %; MPV 8.4 fl. (7.2-11.1); NUCLEATED RBCS 0 /100WBC; PLATELET COUNT* 305 thou/uL (150-400); POLYS 59.9 %; RBC 3.52 mil/uL (4.50-6.00); RDW-CV 14.3 % (10.5-14.5); WBC 7.2 thou/uL (4.0-11.0)
[2017-09-06 05:07] LABS: ALBUMIN 2.8 g/dL (3.4-5.0); CALCIUM 8.6 mg/dL (8.5-10.1); CREATININE 0.9 mg/dL (0.6-1.3); MAGNESIUM 1.9 mg/dL (1.8-2.4); PHOSPHORUS* 4.9 mg/dL (2.5-4.9); POTASSIUM 3.8 mmol/L (3.5-5.1); TOTAL BILIRUBIN 0.3 mg/dL (<0.1-1.0); TOTAL PROTEIN 5.8 g/dL (6.4-8.2)
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
[2017-09-06 08:36] VITALS: BP 164/81
[2017-09-06 13:58] VITALS: BP 164/81
--- NOTE | 2017-09-06 14:05 | NUR ---
Following for d/c planning needs. Pt to d/c home today with home health. Spoke with La at [facility] [place] and faxed referral along with orders. Spoke with Sherri and Daniella at the [facility]. [facility] authorized nursing 3x/week for 4 weeks, PT 3x/week for 4 weeks and OT 3x/week for 4 weeks. Faxed records to pt's PCP Dr Roth (fax: [phone]). No other needs identified.
[2017-09-06] MEDS ORDERED: DIPHENHIST50 MG PO (14:47)
[2017-09-06] MEDS ORDERED: MS CONTIN15 MG PO (14:48)
[2017-09-06] MEDS ORDERED: NORCO 10-325 T1 EACH PO (14:49)
[2017-09-06 14:51] VITALS: BP 164/81
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
--- NOTE | 2017-09-23 15:02 | PLAN ---
[facility] [address] [place] [address] REHAB UNIT PLAN OF CARE Name: CRISTY VELÁSQUEZ Room: [address] IN M..#: [id number] Admission: 08/23/17 Attend Phys: Honey Lechuga DO Discharge: 09/06/17 Date of : 58 Report #: [id number] THIS REPORT FOR: //name// CC: FAM unknown Honey Lechuga DATE OF SERVICE: 08/24/2017 This is a 57-year-old male status post right below knee amputation on 06/20/2018 at the [facility]. He has been working with therapies in the postoperative period. Previous level of function was modified independent with activities of daily living. Current level of function is minimum to moderate assistance of 1-2, depending on therapy, activity and time of day. He does have some memory and cognitive impairment. Speech Language Pathology is doing cognitive evaluation and will determine needs from that. MEDICAL PROGNOSIS: Good. REHABILITATION PROGNOSIS: Good. He does have multiple medical comorbidities related to his below-knee amputation. Estimated length of stay is 12-14 days with discharge disposition to the home setting where he resides in a trailer with the spouse. A ramp is being put in by the [facility]. Physical Therapy will work with the patient 60-90 minutes per day, 5 days per week, working on upper and lower body strength, balance, coordination, navigation wheelchair mobility as well as transfers while maintaining nonweightbearing on the right lower extremity. Occupational Therapy will work with the patient 60-90 minutes per day, 5 days per week, working on upper and lower body strength, balance, coordination, navigation, bathing, dressing, and toileting while maintaining nonweightbearing on the right lower extremity. Speech Language Pathology will work with the patient 30-60 minutes per day, 5 days per week on cognitive impairment and memory strategies. This is an overall plan of care, may change from time to time. We will team him weekly and make changes to plan of care as needed. <ELECTRONICALLY SIGNED> By: Honey Lechuga DO 09/23/17 1502 [id number] [id number] Lechuga DO /nt
--- NOTE | 2017-09-23 15:02 | H ---
[address] [address] HISTORY AND PHYSICAL Name: CRISTY VELÁSQUEZ Room: [address] IN M.R.#: [id number] Admission: 08/23/17 Attend Phys: Honey Lechuga, DO Discharge: 09/06/17 Date of : 58 Report #: [id number] THIS REPORT FOR: //name// CC: FAM unknown Honey Lechuga DATE OF SERVICE: 08/23/2017 HISTORY OF PRESENT ILLNESS: This is a 57[facility] is status post below-knee amputation on 07/20/2017. He did undergo a right transmetatarsal amputation after an I and D on the right foot on 05/27/2017 and 06/14, with wound VAC placement. This was unsuccessful treatment plan. MRI did show osteomyelitis, and he has been working successfully with therapy in the postoperative period. He does have a history of uncontrolled diabetes, multiple medical comorbidities including sleep apnea, hypertension, chronic low back pain, bilateral peripheral neuropathy, depression, PTSD. The only change since the preadmission screening is that there is some significant suspicion for lice and scabies. Otherwise, no changes in the preadmission screening. Previous level of function was modified independent with activities of daily living. Current level of function is minimum to moderate assistance of 1-2 depending on therapy, activity and time of day. There is some mild cognitive impairment. Estimated length of stay is 12-14 days with discharge disposition to the home setting where he lives in a trailer, everything is on 1 level. [facility]. PAST MEDICAL HISTORY: Uncontrolled diabetes, hypertension, sleep apnea, restless legs, claustrophobia, PTSD, depression, chronic low back pain, peripheral neuropathy, osteomyelitis. ALLERGIES: GLIPIZIDE. SOCIAL HISTORY: No tobacco, alcohol or illicit drug use. FAMILY HISTORY: Diabetes. REVIEW OF SYSTEMS: A 14-point review of systems is negative except as mentioned in the HPI. MEDICATIONS: Reviewed and reconciled by myself and are available in the MAR. PHYSICAL EXAMINATION: GENERAL: Alert, oriented, no apparent distress. VITAL SIGNS: Reviewed and are stable. HEENT: Head is atraumatic, normocephalic. Pupils equal, round, reactive. ABDOMEN: Soft, nontender, nondistended. He is obese. NEUROLOGIC: Cranial nerves 2-12 are grossly intact. No focal neuro deficits, [place] [address] HISTORY AND PHYSICAL Name: CRISTY VELÁSQUEZ Room: [address] IN [facility]#: [id number] Admission: 08/23/17 Attend Phys: Honey Lechuga DO Discharge: 09/06/17 Date of : 58 Report #: [id number] 5/5 strength in the bilateral upper and lower extremities. SKIN: Warm, dry. There are multiple lesions on the bilateral arms, bilateral groins and legs that looked like hives as well as areas that are and very pruritic and red, but do not appear infected. ASSESSMENT: 1. Status post right below knee amputation on 06/20/2018. 2. Multiple medical comorbidities requiring acute medical care including uncontrolled diabetes. 3. Lice and scabies suspected. 4. Bilateral peripheral neuropathy. PLAN: 1. Admission to inpatient rehabilitation to facilitate safe discharge to the home setting. 2. PT, OT, speech, language, case management, nursing and HIMS to make evaluations and recommendations. 3. Plan of care is pending and will team him on Wednesdays. 4. Lice and scabies protocol for both topical and rents were ordered and will be initiated. He will be on infectious disease precautions until that time, remaining in the room and in the wheelchair until completion of the protocol. 5. Benadryl 50 mg p.o. b.i.d. q.6 hours p.r.n. was ordered for the itching. <ELECTRONICALLY SIGNED> By: Honey Lechuga DO 09/23/17 1502 0938 [id number] Lechuga DO /nt
== END 2017-09-06 16:51 | disposition home health service (06) | DRG 638 ==
LOC: M.REH 14:06
PROVIDERS: Family Medicine; Internal Medicine; ADMIT Physical Medicine & Rehabilitation
DX: E11.69 Type 2 diabetes mellitus with other specified complication (principal); M86.8X6 Other osteomyelitis, lower leg; B02.29 Other postherpetic nervous system involvement; E11.42 Type 2 diabetes mellitus with diabetic polyneuropathy; I10 Essential (primary) hypertension; G89.29 Other chronic pain; M54.5 Low back pain; F32.9 Major depressive disorder, single episode, unspecified; F43.10 Post-traumatic stress disorder, unspecified; G25.81 Restless legs syndrome; E05.90 Thyrotoxicosis, unspecified without thyrotoxic crisis or storm; G47.33 Obstructive sleep apnea (adult) (pediatric); Z79.899 Other long term (current) drug therapy; Z89.511 Acquired absence of right leg below knee; Z88.8 Allergy status to other drugs, medicaments and biological substances; Z79.4 Long term (current) use of insulin; Z79.82 Long term (current) use of aspirin; Z83.3 Family history of diabetes mellitus

== ENCOUNTER 2017-10-02 13:55 | Inpatient (IN) | payer OTHER ==
[~2017-10-02] VITALS: Ht 182.9 cm; Wt 124.2 kg
[~2017-10-02 13:55] MED LIST changes: +AMBIEN 5 MG TABL5 M1 PO; +ASPIR 8181 MG PO; +ATORVASTATIN CA40 MG PO; +AUGMENTIN 875-1 EACH PO; +CARVEDILOL25 MG PO; +COLACE100 MG PO; +D-20002000 UNIT PO; +DIPHENHIST50 MG PO; +DOXYCYCLINE 10100 MG PO; +FLOMAX0.4 MG PO; +HYDRALAZINE 2525 MG PO; +MS CONTIN15 MG PO; +NORCO 10-325 T1 EACH PO; +OXYCODONE HCL 55 MG PO; +POTASSIUM20 PO; +PRED FORTE 1% EY5 M1 OPHTHALMIC; +PROZAC20 MG PO; +ROBAXIN 750 MG750 M1 PO; +SENNA8.6 MG PO; +TRAZODONE HCL100 MG PO; +VALACYCLOVIR1000 MG PO; +WELLBUTRIN XL150 MG PO
[2017-10-02] MEDS ORDERED: DOCUSATE/SENNOSIDES PO (14:27)
[2017-10-02] MEDS ORDERED: THERA TEARS1 EAC1 OPHTHALMIC (14:33)
[2017-10-02] MEDS ORDERED: NOVOLOG100 UNIT/1 SUBQ (14:35)
[2017-10-02] MEDS ORDERED: UNASYN 3 GM VIAL3 G1 IVPB (14:37)
[2017-10-02 17:58] VITALS: BP 169/89
[2017-10-02 18:26] VITALS: BP 169/89
[2017-10-02 20:10] VITALS: BP 174/89
--- NOTE | 2017-10-03 01:04 | NUR ---
PATIENT ARRIVED IN REHAB @ 1899-10/02-[facility] W/C.ASSUMED CARE @ 1930 SITTING IN W/C.DRSG INTACT RIGHT STUMP.ADMITTED A 57 [facility] OLD [facility] S/P RIGHT AKA.FOUND IN BED @ 2029 W/ HOB UP.INSTRUCTED TO CALL FOR ALL TRANSFERS FOR ASSIST OR SBA.NWB RIGHT LE INSTRUCTED PATIENT.BED ALARM PUT ON @ 2029.WANTS ONLY 2 SIDERAILS UP.C PAP ALREADY ON PATIENT @ 2099.IV ANTIBIOTIC STARTED @ 2129.SINGLE LUMEN PICC LINE RIGHT UPPER ARM W/ GOOD BLOOD RETURN @ 2129.PRN DESYREL 200 MG GIVEN @ 2142 W/ PRN AMBIEN 5 MG ORAL @ 2143.FOUR URI- NALS W/IN REACH.SEE PRN PAIN MANAGEMENT @ 2148.WANTS ALL LIGHTS OUT & DOOR CLOSED.CALLED @ 2314.DRSG CAME OFF RIGHT STUMP.NEW DRSG APPLIED @ 2314.TURNS SELF @ NIGHT.TEMP @ .5 ORAL.ON HOURLY ROUNDS.STILL AWAKE @ 0000-10/03- -COLORING DIFF.BOOKS.REQUESTED 2ND DOSE AMBIEN 5 MG & GIVEN @ 2237.
[2017-10-03 05:42] LABS: HEMATOCRIT 27.4 % (42.0-52.0); HEMOGLOBIN 8.9 gm/dL (14.0-18.0); MCH 26.8 pg (26.0-34.0); MCHC 32.4 g/dL (28.0-37.0); MCV 82.6 fL (80.0-100.0); MPV 8.4 fl. (7.2-11.1); RBC 3.31 mil/uL (4.50-6.00); RDW-CV 15.6 % (10.5-14.5); WBC 8.6 thou/uL (4.0-11.0)
--- NOTE | 2017-10-03 05:45 | NUR ---
USED URINALS X6.URINE SPILL X1.AWAKE FROM 1999 TO 0000.FOUND SLEEPING @ 0200- 10/03-.UP IN W/C @ BEDSIDE @ 0300.BACK TO BED @ 0520.TOOK ALL [employer]AN[employer]A ICE CREAM & CHASE.ICE CREAM HS SNACKS.DAUGHTER BROUGHT PATIENT'S OWN W/C IN REHAB.TEMP @ 953098.7 ORAL.
[2017-10-03 05:50] LABS: ALBUMIN 2.3 g/dL (3.4-5.0); CALCIUM 8.1 mg/dL (8.5-10.1); CREATININE 0.9 mg/dL (0.6-1.3); TOTAL BILIRUBIN 0.5 mg/dL (<0.1-1.0); TOTAL PROTEIN 6.2 g/dL (6.4-8.2)
[2017-10-03 05:53] LABS: POTASSIUM 2.9 mmol/L (3.5-5.1)
--- NOTE | 2017-10-03 06:49 | NUR ---
LAB CALLED FOR CRITICAL VALUE SERUM K-2.9 @ 0553.MESSAGE SENT TO HIMS @ 0988 & INFORMED PATIENT ALREADY HAS K DUR 20 MEQ [address].DR EDWARD SENT MESSAGE THAT HE WAS AWARE OF LOW K LEVEL.K DUR 20 MEQ DUE @ 0900 GIVEN EARLY @ 0616.
[2017-10-03 07:47] VITALS: BP 167/90
--- NOTE | 2017-10-03 09:56 | NUR ---
Nutrition: Pt admitted from [facility]. Has Rt AKA, stump with dressings. Wt at usual of 273#. Eating 100% of CHO controlled diet. H/o DM, wears CPAP. K+ 2.9, alb 2.3. RX: insulin, D3. GOALS: tight BG control for wound healing, recommend MVI. Appears at low risk. Will follow weekly.
--- NOTE | 2017-10-03 15:33 | NUR ---
MET WITH PT TO DISCUSS HOME SITUATION/DC PLANNING. INTRODUCE TO REHAB UNIT. PT HAS BEEN ON REHAB UNIT AND WAS DC'D IN AUGUST OF THIS YEAR. HAS HAD HOSPITAL STAY AT THE [facility] SINCE AND HAD R-AKA DONE. PT LIVES WITH WHO HAS CANCER, HE STATED SHE IS CURRENTLY HOSPITALIZED AT [facility] WITH KIDNEY STONE. HE ALSO STATED THE DRS ARE EVALING HER FOR RADIATION FOR HER [facility]. THEIR 21Y/O DTR CLIVE LIVES WITH THEM, BUT SHE DOESN'T DRIVE. DOES. THEY HAVE ANOTHER DTR/ALYSON WHO LIVES IN [facility] BUT SHE WORKS. PT HAS THE FOLLOWING EQUIPMENT AT HOME: WALKER, W/C, CRUTCHES, BSC, GRAB BAR/RAILING AND BATH BENCH. HE STATES HE FEELS WEAK AND 'RUNDOWN'. HE PLANS TO RETURN HOME WITH AND HH AT [facility]. DISCUSSED REHAB WEEKLY MEETINGS. WILL FOLLOW
--- NOTE | 2017-10-03 19:59 | NUR ---
ASSUMED CARE AT 0730 PATIENT ALERT/ORIENTED, PAIN MEDS GIVE X 1 THIS SHIFT WITH GOOD RELIEF, UP WITH STANDBY TO W/C, DRESSING TO RIGHT STUMP CLEAN/DRY/INTACT. PICC TO UPPER RIGHT ARM IN PLACE FLUSHES WELL, IV ANTIBIOTICS INFUSING PER ORDER. PARTICIPATED IN ALL THERAPIES TODAY, REFUSES TO GO TO DINING ROOM DUE TO PTSD. BED/CHAIR ALARMS IN PLACE, CALL LIGHT IN REACH, HOURLY ROUNDING COMPLETED.
[2017-10-03 20:09] VITALS: BP 159/81
--- NOTE | 2017-10-04 05:07 | NUR ---
ASSUMED CARE AT 1930. PATIENT S/P RT AKA. RESTING IN BED ALL SHIFT. HAD FAMILY VISITING UNTIL AROUND 2099. TAKES PILLS WHOLE WITH WATER. VOIDS PER URINAL. HAS FOUR URINALS AT BEDSIDE. DRESSING TO RT AKA C/D/I. INSTRUCTED TO AVOID AREA TO PREVENT INFECTION. STATED THAT HE HAS HIS OWN AMBIEN AND THAT DR. ESPARZA TOLD HIM HE COULD TAKE IT TONIGHT. PATIENT PRODUCED PILL BOTTLE THAT HE CLAIMS IS AMBIEN. DR. ESPARZA CALLED BY THIS NURSE TO CLARIFY. DR. ESPARZA ORDERED THAT HE COULD HAVE AMBIEN 10 MG SCHEDULED AT HS AND THAT HE COULD TAKE HIS OWN MEDS. HOWEVER, AFTER THE ORDER WAS CLARIFIED, PATIENT DECIDED TO TAKE AMBIEN FROM [facility]. THIS NURSE ASKED HIM IF WE COULD SECURE THIS MEDICINE, PATIENT REFUSED STATING THAT HIS FAMILY WILL TAKE IT HOME TOMORROW. THIS NURSE DID NOT VISUALIZE CONTENTS OF MEDICINE BOTTLE. PATIENT DID TAKE AMBIEN 10 MG FROM [facility] IN ADDITION TO HIS HS MEDS. SEE MAR. WEARS CPAP AT HS AT TIMES. TURNS SELF EASILY AND REFUSES ASSIST WITH TURNS. PICC LINE TO RUE FLUSHES WELL, DRESSING C/D/I. HAS STOCKINETTE OVER THE AREA LOOSELY FOR PATIENT COMFORT. INSTRUCTED TO AVOID CONTACT WITH THE PICC LINE TO DECREASE CHANCE OF INFECTION. HOURLY ROUNDS CONTINUE. CALL LITE IN REACH.
[2017-10-04 07:07] LABS: ALBUMIN 2.4 g/dL (3.4-5.0); CALCIUM 8.5 mg/dL (8.5-10.1); POTASSIUM 3.3 mmol/L (3.5-5.1); TOTAL BILIRUBIN 0.4 mg/dL (<0.1-1.0); TOTAL PROTEIN 6.5 g/dL (6.4-8.2)
[2017-10-04 08:00] VITALS: BP 155/82
--- NOTE | 2017-10-04 19:02 | NUR ---
IV ABX CONTINUE WITHOUT ADVERSE REACTION. DRESSING REMAINS C/D/I TO RIGHT AKA. PT CONTINUES TO WORK TOWARD DISCHARGE GOALS, COOPERATIVE AND PLEASANT. FALL PRECAUTIONS AND HOURLYROUNDING CONTINUE FOR PT SAFETY.
[2017-10-04 20:16] VITALS: BP 161/86
--- NOTE | 2017-10-05 06:05 | NUR ---
ASSUMED CARE AT 1930. PATIENT S/P RT AKA. REFUSED BED ALARM, MOVES WELL IN BED. VOIDS PER URINAL. DRESSING CHANGED AROUND MIDNIGHT AND AGAIN WHEN INFECTIOUS DISEASE ROUNDED. ID ENCOUARAGED PATIENT NOT TO TAPE THE DRESSING TO HIS SKIN, WHICH HE DID ON HIS OWN. DRESSING NEEDS SOME SMALL AMOUNT OF TAPE TO STAY ON DUE TO SHAPE OF WOUND/LEG. MEDICATED FOR PAIN. SEE MAR. PICC LINE FLUSHES WELL. IVABX INFUSING AT THIS TIME. HOURLY ROUNDS CONTINUE, CALL LITE IN REACH.
[2017-10-05 06:31] LABS: HEMOGLOBIN 8.7 gm/dL (14.0-18.0); MCH 27.4 pg (26.0-34.0); MCHC 33.4 g/dL (28.0-37.0); MCV 82.3 fL (80.0-100.0); MPV 8.2 fl. (7.2-11.1); RBC 3.16 mil/uL (4.50-6.00); RDW-CV 15.5 % (10.5-14.5); WBC 8.4 thou/uL (4.0-11.0)
[2017-10-05 07:05] LABS: ALBUMIN 2.5 g/dL (3.4-5.0); CALCIUM 8.5 mg/dL (8.5-10.1); POTASSIUM 3.3 mmol/L (3.5-5.1); TOTAL BILIRUBIN 0.5 mg/dL (<0.1-1.0); TOTAL PROTEIN 6.5 g/dL (6.4-8.2)
[2017-10-05 07:30] VITALS: BP 169/93
--- NOTE | 2017-10-05 16:58 | NUR ---
ASSUMED CARE AT 0730. ALERT ORIENTED PLEASANT COOPERATIVE. HX OF RT. AKA. DRESSING C/D/I TO STUMP. TRANSFERS WITH SBA FROM BED TO W/C. PARTICIPATING IN THERAPIES THROUGHOUT THE DAY. UP IN W/C AT BEDSIDE. MEDICATED X 1 WITH PRN PAIN MED PER PT. REQUEST WITH PARTIAL RELIEF. USES CALL LIGHT APPROPRIATELY FOR ASSIST. TO BR FOR VOID AND BM. ABLE TO DO HYGEINE AND CLOTHING ADJUSTMENTS. APPETITE FAIRLY GOOD FEEDS SELF TAKES MEDS WITHOUT DIFFICULTY.
[2017-10-05 20:33] VITALS: BP 151/80
--- NOTE | 2017-10-06 05:02 | NUR ---
ASSUMED PT CARE AT 1930. PT ALERT AND ORIENTED X4, COOPERATIVE WITH CARES. PT S/P RT AKA. PAIN MEDS AT HS. DRESSING TO RT STUMP C/D/I. PICC LINE TO RIGHT UPPER ARM FLUSHES WELL, LABS OBTAINED. PT CAN TURN SELF IN BED. REFUSES BED ALARM. VOIDS PER URINAL, STAFF EMPTIES. NO STOOL THIS SHIFT. CALL LIGHT AND FREQUENTLY USED ITEMS WITHIN REACH. HOURLY ROUNDING IN PROGRESS, WILL CONTINUE TO MONITOR.
--- NOTE | 2017-10-06 05:03 | CON ---
[address] [address] CONSULTATION Name: CRISTY VELÁSQUEZ Room: [address] IN M.R.#: [id number] Admission: 10/02/17 Attend Phys: Honey Lechuga DO Discharge: Date of : 58 Report #: [id number] THIS REPORT FOR: //name// CC: FAM unknown Honey Lechuga DATE OF SERVICE: 10/05/2017 ATTENDING PHYSICIAN: Honey Lechuga DO REASON FOR CONSULTATION: Duration of IV antibiotic. HISTORY OF PRESENT ILLNESS: The patient is a 57-year-old white man requiring multiple surgeries to the right lower extremity, finally resulting in right AKA. The patient remains on Unasyn IV. He has no major complaints other than occasional right AKA stump wound pain. PAST MEDICAL HISTORY: 1. Diabetes mellitus. 2. Morbid obesity. 3. Osteomyelitis, right lower extremity. 4. Cholecystectomy. DRUG ALLERGIES: GLIPIZIDE. MEDICATIONS: The patient is on treatment with Unasyn 3 g IV every 6 hours, magnesium and potassium replacement per protocol, zolpidem p.r.n., bupropion, lisinopril, fluoxetine, tamsulosin, cholecalciferol, amlodipine, insulin lispro, gabapentin, insulin glargine, atorvastatin, docusate, trazodone. SOCIAL HISTORY: See H and P, old records. FAMILY HISTORY: See H and P, old records. REVIEW OF SYSTEMS: Noncontributory besides what has been stated above. PHYSICAL EXAMINATION: GENERAL: Morbidly obese white man, nontoxic looking. VITAL SIGNS: Temperature 98.5, pulse 82, respirations 18, BP 161/68, weight 267 pounds, height 6 feet. HEENMT: Within range. NECK: Supple. LUNGS: Clear. HEART: S1, S2. ABDOMEN: Morbidly obese, right subcostal surgical wound from previous cholecystectomy. No [place] [address] CONSULTATION Name: CRISTY VELÁSQUEZ Room: [address] IN [facility]#: [id number] Admission: 10/02/17 Attend Phys: Honey Lechuga, DO Discharge: Date of : 58 Report #: [id number] GENITAL AND RECTAL: Deferred. EXTREMITIES: The right AKA stump with usama in place and some superficial area of skin damage from tapes. The patient is strongly advised against using tape on legs any longer. No pretibial edema in left leg. NEUROLOGIC: Grossly within normal limits. LABORATORY DATA: Sodium 141, potassium 3.3, BUN 14, creatinine 1, glucose 173. Albumin 2.4. WBC 8.6; hemoglobin ; platelets 349,000. Prealbumin 15. ASSESSMENT: 1. Status post right above-knee amputation. No signs of infection. 2. Diabetes mellitus. 3. Hypoalbuminemia. 4. Morbid obesity. 5. Anemia of chronic disease. SUGGESTION: We will continue with local wound care and dressings. Avoid tapes on skin. Since infected area was already surgically removed and the surgical wound on the right AKA looks completely normal, favor discontinuation of antibiotics. Dr. Lechuga, thank you for requesting our suggestions in the care of your patient. <ELECTRONICALLY SIGNED> By: Nato Aguilera MD 10/06/17 0503 0515 [id number] Aguilera MD /nt
[2017-10-06 08:00] VITALS: BP 151/79
--- NOTE | 2017-10-06 15:21 | NUR ---
ASSUMED CARE AT 0730. ALERT ORIENTED PLEASANT COOPERATIVE. HX OF RT. AKA DRESSING C/D/I. TRANSFERS WITH SBA FROM BED TO W/C AND BACK TO BED. MEDICATED X 1 WITH PRN PAIN MED RATES A FIVE. APPETITE GOOD FEEDS SELF TAKES MEDS WITHOUT DIFFICULTY. USES CALL LIGHT APPROPRIATELY FOR ASSISTANCE. PICC LINE RT. UPPER ARM WILL D/C LATER TODAY. WORKING ON ARTWORK IN ROOM.
--- NOTE | 2017-10-06 16:31 | NUR ---
PT. PICC LINE REMOVED WITHOUT DIFFICULTY NO BLEEDING PRESSURE HELD 5 MINUTES. RT. STUMP DRESSING CHANGED MIN AMT DRAINAGE ON OLD ABD.
[2017-10-06 19:30] VITALS: BP 145/71
--- NOTE | 2017-10-06 23:05 | NUR ---
ASSUMED CARE AT 1929. PATIENT S/P RT AKA. IN W/C UNTIL AROUND 2129. UP WITH SBA, GAIT BELT, STAND PIVOT. DRESSING C/D/I. MEDICATED FOR SLEEP AND PAIN AT HS, SEE AUG. TAKES PILLS WHOLE WITH WATER. TURNS SELF VERY EASILY AND REFUSES BED ALARM. ONLY ALLOWS 2 SR UP. MIPILEX TO PICC LINE REMOVAL SITE. HOURLY ROUNDS CONTINUE. CALL LITE IN REACH.
[2017-10-07 05:01] LABS: CALCIUM 8.3 mg/dL (8.5-10.1); CREATININE 1.2 mg/dL (0.6-1.3); MAGNESIUM 1.9 mg/dL (1.8-2.4); POTASSIUM 3.5 mmol/L (3.5-5.1)
--- NOTE | 2017-10-07 05:53 | NUR ---
SLEPT OFF AND ON THROUGH THE NIGHT. WAS UP FOR A WHILE WORKING ON ARTWORK. WOKE UP C/O HAVING A BAD DREAM DESPITE TAKING TRAZADONE AT HS. VOIDS PER URINAL. TURNS SELF EASILY. CALL LITE IN REACH. HOURLY ROUNDS CONTINUE. REFUSES BED ALARM.
[2017-10-07 08:00] VITALS: BP 162/84
--- NOTE | 2017-10-07 15:33 | NUR ---
SW called pt dtr Gifty who did not answer and voicemail not set up, SW called pt Liudmila who did not answer, SW left a detailed message mentioning team conference on Saturday and to call SW with any questions or concerns to be presented to the team by SW. SW to continue to follow to assist with safe dc planning.
--- NOTE | 2017-10-07 15:50 | NUR ---
ASSUMED CARE AT 0730. ALERT ORIENTED PLEASANT COOPERATIVE. HX OF RT. AKA. DRESSING CHANGED X 2 IT WAS LOOSE AND CAME OFF NO DRAINAGE NOTED. SUTURES INTACT. PARTICIPATING IN THERAPIES THROUGHOUT THE DAY. TRANSFERS WITH SBA G BELT TO W/C FROM BED AND BACK. FEEDS SELF TAKES MEDS WITHOUT DIFFICULTY. APPETITE GOOD. MEDICATED X 1 FOR C/O RT. STUMP PAIN PER PT. REQUEST. USES CALL LIGHT APPROPRIATELY FOR ASSIST.
[2017-10-07 20:05] VITALS: BP 161/84
--- NOTE | 2017-10-08 05:36 | NUR ---
PATIENT SLEPT MOST OF THE NIGHT. PATIENT WAS GIVEN PAIN MEDICINE ONCE THIS SHIFT. PATIENT TRANSFERS FROM THE CHAIR TO BED WITH SUPERVISION. DRESSING REMAINS TO RIGHT STUMP. WILL CONTINUE TO MONITOR.
[2017-10-08 08:11] VITALS: BP 168/84
[2017-10-08 11:30] VITALS: BP 151/83
--- NOTE | 2017-10-08 16:35 | NUR ---
PATIENT A&OX4, ROOM AIR, UP STAND BY WITH TRANSFER FROM BED/CHAIR TO W/C. USES URINAL FOR BLADDER ELIMINATION, USING TOLIET FOR BOWEL MOVEMENTS. C/O PAIN TO RIGHT STUMP, PARTIAL RELIEF WITH MEDICATION. DRESSING CHANGED TODAY AFTER THERAPY, INCISION C/D/I WELL APPROXIMATED, HEALLING WELL. NO OTHER CONCERNS AT THIS TIME. APPROPRAITE AND COOPORATIVE WITH CARE.
[2017-10-08 17:15] VITALS: BP 145/76
[2017-10-08 20:00] VITALS: BP 144/56
--- NOTE | 2017-10-09 06:26 | NUR ---
ASSUMED PT CARE AT 1930. PT ALERT AND ORIENTED X4, COOPERATIVE WITH CARES. TAKES PILLS WHOLE WITH WTER WITHOUT DIFFICULTY. USES URINAL OVERNIGHT, STAFF EMPTIES. C/O PAIN TO RIGHT STUMP, PRN PAIN MEDICATION GIVEN. DRESSING TO RIGHT STUMP C/D/I HAVING BEEN CHANGED ON DAY SHIFT. PT GIVEN HS SNACKS. USES CALL LIGHT APPROPRIATELY. CALL LIGHT AND FREQUENTLY USED ITEMS WITHIN REACH. HOURLY ROUNDING COMPLETED.
[2017-10-09 08:00] VITALS: BP 156/80
--- NOTE | 2017-10-09 17:01 | NUR ---
BROCK and Dr Lechuga met with pt to review team conference summary. Plan for pt to be mod I in his room and to dc home with family on Saturday. Pt has 2 follow up appts tomorrow, one at amputee clinic and a psychiatrist appt, 2:30 and 3:30 pm. [facility] scheduled ride with [facility] round trip; pt to be picked up at 1:30 pm. Pt in agreement with plan. BROCK to continue to follow to follow up with family if needed ([facility]OCK had previously left message for pt and tried pt dtr with no answer.) [facility] to follow to finalize safe dc plan. Pt did not express any other questions or concerns at this time.
[2017-10-09] MEDS ORDERED: MIRALAX17 GM PO (17:28)
--- NOTE | 2017-10-09 18:58 | NUR ---
ASSUMED CARE AT 0730 PATIENT ALERT/ORIENTED, PAIN MEDS GIVEN ORDERED FOR PAIN. DRESSING TO RIGHT AMPUTATION CLEAN/DRY/INTACT. PATIENT MADE MOD I IN ROOM WITH HOME ON SATURDAY. PARTICIPATED IN ALL THERAPIES TODAY, REFUSES TO GO TO DINING ROOM FOR MEALS. HOURLY ROUNDING COMPLETED, BED/CHAIR ALARMS IN PLACE CALL LIGHT IN REACH
[2017-10-09 20:12] VITALS: BP 161/74
[2017-10-10 04:22] LABS: HEMATOCRIT 30.6 % (42.0-52.0); HEMOGLOBIN 9.9 gm/dL (14.0-18.0); MCH 26.6 pg (26.0-34.0); MCHC 32.4 g/dL (28.0-37.0); MCV 82.3 fL (80.0-100.0); MPV 8.3 fl. (7.2-11.1); RBC 3.72 mil/uL (4.50-6.00); RDW-CV 15.7 % (10.5-14.5)
[2017-10-10 04:40] LABS: ALBUMIN 3.1 g/dL (3.4-5.0); CALCIUM 9.1 mg/dL (8.5-10.1); CREATININE 0.9 mg/dL (0.6-1.3); POTASSIUM 4.1 mmol/L (3.5-5.1); TOTAL BILIRUBIN 0.4 mg/dL (<0.1-1.0)
--- NOTE | 2017-10-10 05:32 | NUR ---
ASSUMED PT CARE AT 1930. PT ALERT AND ORIENTED, COOPERATIVE WITH CARES. PT IS MOD I IN ROOM, DISCHARGE TO HOME ON SATURDAY. DRESSING TO RIGHT AMPUTATION C/D/I AT SHIFT CHANGE. DRESSING CAME OFF DURING NIGHT, DRESSING REPLACED. SUTURES INTACT TO AKA. HS SNACKS GIVEN PER PT REQUEST. NO PRN PAIN MEDS THIS SHIFT. CALL LIGHT AND FREQUENTLY USED ITEMS WITHIN REACH. HOURLY ROUNDING IN PROGRESS, WILL CONTINUE TO MONITOR.
[2017-10-10 08:00] VITALS: BP 153/67
[2017-10-10 08:01] VITALS: BP 153/67
--- NOTE | 2017-10-10 19:03 | NUR ---
ASSUMED CARE AT 0730 PATIENT ALERT/ORIENTED, PAIN MEDS GIVEN REQUESTED. TO SD FOR APPOINTMENTS THIS AFTERNOON, LEFT AT 1330 RETURNED AT 1715. NO NEW ORDERS PATIENT TO BE DISCHARGED TO HOME TOMORROW. PARTICIPATED IN ALL THERAPIES TODAY. REFUSES TO GO TO DINING ROOM FOR MEALS. MOD I IN ROOM. HOURLY ROUNDING COMPLETED, CALL LIGHT IN REACH
[2017-10-10 20:09] VITALS: BP 152/83
--- NOTE | 2017-10-10 20:55 | NUR ---
SITTING UP IN W/C WATCHING TV ON HIS COMPUTER. DENIES DISCOMFORT. ON SCHEDULED MS CONTIN. MODIFIED INDEPENDENT IN ROOM WITH WHEELCHAIR. SNACK PROVIDED.
--- NOTE | 2017-10-11 06:04 | NUR ---
REMAINS MODIFIED INDEPENDENT IN ROOM WITH A WHEELCHAIR. DENIES ANY NEED FOR PAIN MED THIS MORNING. USED URINAL X 4 DURING THE NIGHT. HOURLY ROUNDING IN PROGRESS.
[2017-10-11 09:41] VITALS: BP 138/73
[2017-10-11 13:21] VITALS: BP 169/89
[2017-10-11 15:29] VITALS: BP 169/89
--- NOTE | 2017-10-11 15:30 | NUR ---
Pt to dc home today with family and HH services to follow. [facility] called and spoke with [facility] (pt current with agency) who can resume HH care services and [facility] faxed final orders and med list to [facility]. Pt has needed DME. No other concerns or needs expressed at this time.
--- NOTE | 2017-10-11 16:31 | NUR ---
ASSUMMED CARE OF PT AT 0730, PT ALERT AND ORIENTED, PT MOD I IN ROOM WITH NO DIFFICULTIES, PT COMPLAINS OF PAIN IN RIGHT STUMP, MEDICATED PER ORDERS, INCIISION C/D/I, SLIGHT RED AREA AT INNER ASPECT OF INCSION, NO DRAINAGE, DRESSING CHANGED PER PT, PT TAKING FOOD AND FLUIDS WELL, REFUSES TO GO TO DININGROOM FOR MEALS, PARTICIPATED IN ALL THERAPIES, ORDERS OBTAINED FOR DISCHARGE, PT STATES HE CAN NOT FILL ANY PRESCRIPTIONS UNTIL AFTER NOVEMBER 05 BUT STATES HAS ENOUGH HOME MEDICATIONS TO LAST HIM UNTIL THEN, HOURLY ROUNDING COMPLETED, ASSESSMENT COMPLETE, WILL CONTINUE TO MONITOR, PT STATES WILL BE HERE AT 1830 TO DRIVE HIM HOME.
--- NOTE | 2017-10-15 13:30 | D ---
[facility] [address] [place] [address] DISCHARGE SUMMARY Name: CELSACRISTY Eliana Room: [address] IN M.R.#: [id number] Admission: 10/02/17 Attend Phys: Honey Lechuga DO Discharge: 10/11/17 Date of : 58 Report #: [id number] THIS REPORT FOR: //name// CC: FAM unknown Honey Lechuga DATE OF SERVICE: 10/11/2017 DISCHARGE DIAGNOSIS: Status post right above knee amputation. DISCHARGE DISPOSITION: To home with home health PT, OT, nursing and supportive family. [facility] and [facility] as previously arranged. Notifications for physician were given. DIET: Will be regular with carb-controlled, heart healthy. Monitor weight gain. Fall precautions. Wheelchair for ambulation and nonweightbearing on the right lower extremity with some in place. MEDICATIONS: Reviewed and reconciled by myself and are available in the MAR. I did give him a prescription for bupropion 150 mg as the XL version. He did start this during his stay here. He did find benefit from it and would like to continue that, in addition to his Prozac 60 mg p.o. q. daily. The patient progressed very well during his therapies, progressed to a modified independent level of care in his room and had no significant issues. DISCHARGE PHYSICAL EXAMINATION: GENERAL: Alert, oriented, in no apparent distress. VITAL SIGNS: Reviewed and are stable. HEENT: Head atraumatic, normocephalic. Pupils equal, round, reactive. ABDOMEN: Soft, nontender, nondistended. NEUROLOGIC: Cranial nerves 2-12 are grossly intact with no focal neuro deficits, 5/5 strength in bilateral upper and lower extremities. SKIN: Warm and dry. Incision is freshly dressed and currently intact. <ELECTRONICALLY SIGNED> By: Honey Lechuga DO 10/15/17 1330 1232 [id number] Lechuga DO /nt
--- NOTE | 2017-10-22 20:30 | H ---
[address] [address] HISTORY AND PHYSICAL Name: CRISTY VELÁSQUEZ Room: [address] IN [place].#: [id number] Admission: 10/02/17 Attend Phys: Honey Lechuga, DO Discharge: 10/11/17 Date of : 58 Report #: [id number] THIS REPORT FOR: //name// CC: FAM unknown Honey Lechuga DATE OF SERVICE: 10/02/2017 HISTORY OF PRESENT ILLNESS: This is a 57-year-old male admitted to inpatient rehabilitation to facilitate safe discharge home. He is known to this service from a previous admission earlier this year where he was admitted for a right below knee amputation done at the [facility]. He did rehab. He was discharged home at a wheelchair level of care, presented to [facility] on 09/23/2017 with some redness, bleeding and oozing at the incision site. He was admitted and worked up, found to have significant osteomyelitis and abscess at the distal tibia and the margin of the fibula. On 09/24/2017, he underwent exploration of the wound site and ultimately a right above-knee amputation on 09/27/2017, ongoing wound care as well as IV antibiotics. He does have multiple medical comorbidities. No significant changes since the preadmission screening. Previous level of function at the most recent hospitalization at the [facility] was modified independent. Current level of function is minimum assistance to moderate assistance of 1-2 depending on therapy, activity and time of day. Comprehension, expression, social interaction, problem solving and memory are within normal limits. Estimated length of stay is 12-14 days with discharge disposition to the home setting where he has his spouse that can provide supervision and assistance. He is expected to discharge at a modified independent level of care at a wheelchair level. PAST MEDICAL HISTORY: Hypertension, diabetes type 2, PTSD, [place], RLS, low back pain, hyperlipidemia, peripheral neuropathy, osteomyelitis, claustrophobia, acute sinusitis, depression, dysthymic disorder, adrenal adenoma, hypothyroid, herpes zoster, herpetic neuralgia, previous diabetic foot ulcer. 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 ALLERGIES: GLIPIZIDE. MEDICATIONS: Reviewed and reconciled by myself and are available in the [facility]. SOCIAL HISTORY: Unchanged from previous. FAMILY HISTORY: Unchanged from previous. REVIEW OF SYSTEMS: A 14-point review of systems is done and is negative except as mentioned in the HPI, specifically no fever, chest pain, shortness of breath, [place] [id number] HISTORY AND PHYSICAL Name: CRISTY VELÁSQUEZ Room: [address]#: [id number] Admission: 10/02/17 Attend Phys: Honey Lechuga, DO Discharge: 10/11/17 Date of : 58 Report #: [id number] abdominal pain or distention. PHYSICAL EXAMINATION: GENERAL: Alert, up in the chair, in no apparent distress. VITAL SIGNS: Reviewed and are stable. HEENT: Head: Atraumatic, normocephalic. Pupils are equal, round, reactive. ABDOMEN: Soft, nontender, nondistended. NEUROLOGIC: Cranial nerves 2-12 are grossly intact. No focal neuro deficits, 5/5 strength in the bilateral upper and lower extremities. SKIN: Warm and dry. No rashes or lesions noted. Left incision on the AKA is freshly dressed, is not visible at this time. PSYCHIATRIC: Normal mood and affect. ASSESSMENT: 1. Right above-knee amputation on 09/27/2017 due to osteomyelitis and nonhealing previous right below knee amputation. 2. Long-term IV antibiotics due to #1. 3. Multiple medical comorbidities requiring acute medical care including diabetes, hypertension, obstructive sleep apnea, restless leg, hyperlipidemia, peripheral neuropathy, and herpetic neuralgia. PLAN: 1. Admission to inpatient rehabilitation to facilitate safe discharge home. 2. PT, OT, case management, nursing and HIMS to make evaluations and recommendations. 3. Plan of care is pending. We will team him weekly. 4. Wound care. 5. Neuropathic pain control. <ELECTRONICALLY SIGNED> By: Honey Lechuga DO 10/22/17 2030 [id number] Lechuga DO /nt
--- NOTE | 2017-10-22 20:30 | PLAN ---
[address] [address] REHAB UNIT PLAN OF CARE Name: CRISTY VELÁSQUEZ Room: [address] IN M..#: [id number] Admission: 10/02/17 Attend Phys: Honey Lechuga, Discharge: 10/11/17 Date of : 58 Report #: [id number] THIS REPORT FOR: //name// CC: FAM unknown Honey Lechuga DATE OF SERVICE: 10/03/2017 This is a 57-year-old male admitted to inpatient rehabilitation to facilitate safe discharge home, status post right above-knee amputation on 09/27/2017 with known osteomyelitis, on long-term IV antibiotics due to failed right BKA on 08/21/2017. He is known to this service. MEDICAL PROGNOSIS: Good. REHABILITATION PROGNOSIS: Good. Estimated length of stay is 12-14 days with discharge disposition to the home setting with supportive family. Previous level of function was modified independent. Current level of function is minimum to moderate assistance 1-2 depending on therapy, activity and time of day. Comprehension, expression, problem solving are all within normal limits at this time. Physical therapy will see the patient 60-90 minutes per day, 5 days per week, working on upper and lower body strength, balance, coordination, navigation. Occupational therapy will work with the patient 60-90 minutes per day, 5 days per week, working on upper and lower body strength, balance, coordination, navigation, bathing, dressing and toileting. This is an overall plan of care, may change from time to time. We will team him weekly and make changes to plan of care as needed. <ELECTRONICALLY SIGNED> By: Honey Lechuga DO 10/22/17 2030 1316 [id number] Lechuga DO /nt
== END 2017-10-11 18:30 | disposition home health service (06) | DRG 638 ==
LOC: M.REH 13:55
PROVIDERS: Internal Medicine; ADMIT Physical Medicine & Rehabilitation
DX: E11.69 Type 2 diabetes mellitus with other specified complication (principal); M86.8X6 Other osteomyelitis, lower leg; B02.29 Other postherpetic nervous system involvement; I10 Essential (primary) hypertension; F43.10 Post-traumatic stress disorder, unspecified; G47.33 Obstructive sleep apnea (adult) (pediatric); G25.81 Restless legs syndrome; E78.5 Hyperlipidemia, unspecified; E11.42 Type 2 diabetes mellitus with diabetic polyneuropathy; F32.9 Major depressive disorder, single episode, unspecified; E03.9 Hypothyroidism, unspecified; G89.29 Other chronic pain; E66.01 Morbid (severe) obesity due to excess calories; E88.09 Other disorders of plasma-protein metabolism, not elsewhere classified; D63.8 Anemia in other chronic diseases classified elsewhere; M54.5 Low back pain; E87.6 Hypokalemia; Z89.611 Acquired absence of right leg above knee; Z88.8 Allergy status to other drugs, medicaments and biological substances; Z79.4 Long term (current) use of insulin; Z79.899 Other long term (current) drug therapy; Z89.429 Acquired absence of other toe(s), unspecified side; Z87.891 Personal history of nicotine dependence; Z68.37 Body mass index [BMI] 37.0-37.9, adult; Z90.49 Acquired absence of other specified parts of digestive tract